=== PATIENT | male | born 1985 | race Caucasian/White ===

== ENCOUNTER 2017-01-04 17:23 | Emergency (ER) | payer MEDICAID ==
[2017-01-04 17:29] VITALS: RESP 16
[2017-01-04] MEDS ORDERED: HYDROCOD/APAP 5/325 PREPACK#6 BTL TAKEHOME ONE (18:41)
[2017-01-04] MEDS ORDERED: SULFAMET/TMP DS PREPACK#2 BTL TAKEHOME ONE (18:41)
--- NOTE | 2017-01-04 18:42 | EDPHY ---
H & P Time Seen by Provider: 01/04/17 17:38 HPI/ROS: CHIEF COMPLAINT: Abscess on my back HISTORY OF PRESENT ILLNESS: 31-year-old male has been seen in the emergency department previously for significant lower back abscess, possible pilonidal cyst abscess, presents with similar complaints. Patient describes difficulty with sitting and a painful lump just to the left of midline at the bottom of his spine. No fevers or chills. Small amount of spontaneous drainage per the patient's history. No numbness or tingling in the legs, no weakness, no urinary incontinence. No nausea, vomiting, or diarrhea. REVIEW OF SYSTEMS: Aside from elements discussed in the HPI, a comprehensive 10-point review of systems was reviewed and is negative. PAST MEDICAL HISTORY: Prior history of abscess, possible pilonidal cyst, the lower back SOCIAL HISTORY: History of homelessness. GENERAL APPEARANCE: Alert, conversant, no acute distress. Pleasant, complaining of pain he tries to sit or lay on his back. FOCUSED EXAM OF lower back: There is a small area of tenderness and fullness, 2 cm x 1 cm, at the very top of that gluteal cleft, just slightly to the left. Small draining wound is present. Some fluctuant. Tender. No erythema noted. Neurovascular exam: Distal neurovascularly intact. Normal motor and strength in lower extremities. Smoking Status: Current every day smoker Constitutional: Initial Vital Signs Temperature (C) 36.7 C 01/04/17 17:27 Heart Rate 84 01/04/17 17:27 Respiratory Rate 16 01/04/17 17:27 Blood Pressure 106/58 L 01/04/17 17:27 O2 Sat (%) 96 01/04/17 17:27 O2 Delivery Mode Room Air Allergies/Adverse Reactions: penicillin G Allergy (Verified 11/07/16 14:43) Home Medications: Medication Instructions Recorded Sulfamethox/Tmp 800/160 mg 1 tab PO BID #14 tab 11/07/16 [Bactrim Ds] Cephalexin [Keflex] 500 mg PO QID 10 Days 11/09/16 Sulfamethox/Tmp 800/160 mg 1 tab PO BID@1000,2200 10 Days 11/09/16 [Bactrim Ds] Sulfamethox/Tmp 800/160 mg 1 tab PO BID #14 tab 01/04/17 [Bactrim Ds] MDM/Departure - MDM Procedures: Procedure: Abscess drainage. The patient's abscess was located on the lower back, just at the top of the gluteal cleft, just to left of midline. I obtained verbal consent from the patient to drain the abscess who was informed about the possibility of bleeding and pain. The abscess was incised with a scalpel and a minimal amount of purulent drainage was expressed. Initial incision was made distal to a draining sinus and did not reveal any purulence. This area was sutured with 2 simple interrupted sutures. Incision was then extended from the draining site cephalad, with only a minimal amount of purulence expressed. The patient tolerated the procedure well. The procedure was performed by myself. Medications Given: Discontinued Medications Acetaminophen/Hydrocodone Bitart ([place] 5/325mg Prepack#6) 1 btl TAKEHOME EDNOW ONE Stop: 01/04/17 18:42 Last Admin: 01/04/17 19:12 Dose: 1 btl Trimethoprim/Sulfamethoxazole (Bactrim Ds Prepack#2) 1 btl TAKEHOME EDNOW ONE Stop: 01/04/17 18:42 Last Admin: 01/04/17 19:22 Dose: 1 btl ED Course/Re-evaluation: 31-year-old male presenting with a 2nd episode of a small abscess at the lower back. This may represent a pilonidal cyst, however, it is just slightly to the left of midline. Initial incision over the center of the fullness did not reveal any purulence. This incision was closed. Draining sinus was opened slightly a small amount of purulence was expressed. Patient was placed on Bactrim and given [place] for pain control. He will return in 7-10 days for removal of the sutures. He was referred to Dr. Eng for further evaluation of this recurrent draining area. Differential Diagnosis: Differential diagnoses for the patient's symptom complex was considered including but not limited to infected pilonidal cyst, draining sinus, simple skin abscess, MRSA. - Depart Disposition: Home, Routine, Self-Care Clinical Impression: Abscess Condition: Good Instructions: Pilonidal Cyst (ED), Abscess (ED) Additional Instructions: Please take the antibiotics as directed. Bactrim DS 1 tablet by mouth 2 times a day for 5 days. Okay to take pain medications as needed. Please follow up with Dr. Eng for re-examination further treatment to prevent recurrent abscess. Return to the emergency department in 7-10 days to have sutures removed. Prescriptions: Sulfamethox/Tmp 800/160 mg [Bactrim Ds] 1 tab PO BID #14 tab Referrals: Jesus Eng MD [Medical Doctor] - As per Instructions
[2017-01-04 19:25] VITALS: BP 111/65; PULSE 88; TEMP 98.6; O2SAT 99
== END 2017-01-04 19:25 | disposition home or self-care (01) ==
PROC: 0J970ZZ Drainage of Back Subcutaneous Tissue and Fascia, Open Approach (ICD-10-PCS; principal; 2017-01-04)
DX: L02.212 Cutaneous abscess of back [any part, except buttock and flank] (principal); F17.200 Nicotine dependence, unspecified, uncomplicated

== ENCOUNTER 2017-01-08 12:00 | Emergency (ER) | payer MEDICAID ==
[2017-01-08 12:04] VITALS: BP 135/81; PULSE 82; RESP 16; TEMP 98.1; O2SAT 98
[2017-01-08] MEDS ORDERED: OXYCODONE/APAP 5/325 TAB PO ONE (12:11)
--- NOTE | 2017-01-08 12:16 | EDPHY ---
H & P Time Seen by Provider: 01/08/17 12:05 HPI/ROS: CHIEF COMPLAINT: Continued pain cleft of the buttock HISTORY OF PRESENT ILLNESS: 31-year-old homeless male, immunocompetent, history of recurrent pilonidal cyst, seen the ER 4 days ago with incision and drainage by ER physician at that time. He is currently homeless. He has been walking extensively in doing construction work and notes that he has continued pain. He was given 5 opiate tablets at that time which he has consumed has continued pain. Denies new symptoms. Denies trauma. Denies radiculopathy. Denies fever chills. Denies flu-like symptoms. PHYSICAL EXAM (Prior to examination, patient consented to physical exam, hands were washed and my usual and customary physical exam procedures followed) 1) GENERAL: Well-developed, well-nourished, alert and oriented. Appears to be in no acute distress. 2) HEAD: Normocephalic 3) HEENT: sclera anicteric 4) LUNGS: Breathing comfortably. 5) SKIN: cleft of the buttock incision is noted which continues to drain. There is localized tenderness with no visible erythema or violaceous discoloration. There is no crepitus. The proximal and distal spine is nontender. Smoking Status: Current every day smoker Constitutional: Initial Vital Signs Temperature (C) 36.7 C 01/08/17 12:02 Heart Rate 82 01/08/17 12:02 Respiratory Rate 16 01/08/17 12:02 Blood Pressure 135/81 H 01/08/17 12:02 O2 Sat (%) 98 01/08/17 12:02 O2 Delivery Mode Room Air Allergies/Adverse Reactions: penicillin G Allergy (Verified 11/07/16 14:43) Home Medications: Medication Instructions Recorded Sulfamethox/Tmp 800/160 mg 1 tab PO BID #14 tab 11/07/16 [Bactrim Ds] Cephalexin [Keflex] 500 mg PO QID 10 Days 11/09/16 Sulfamethox/Tmp 800/160 mg 1 tab PO BID@1000,2200 10 Days 11/09/16 [Bactrim Ds] Sulfamethox/Tmp 800/160 mg 1 tab PO BID #14 tab 01/04/17 [Bactrim Ds] MDM/Departure - MDM ED Course/Re-evaluation: Old medical records reviewed. He has focal tenderness over his pilonidal cleft region. There are no new areas of fluctuance. The area continues to drain. I do not think that further incision and drainage indicated at this time. I do not think that imaging studies are currently indicated at this time. Due to his current lack of housing in because he is walking extensively, he has not been able to rest or apply warm compresses to the area regularly. Recommend continue antibiotics until finished. Given analgesia. Recommend 24-48 [facility] - Depart Disposition: Home, Routine, Self-Care Clinical Impression: Pilonidal cyst with abscess Condition: Good Instructions: Pilonidal Cyst (ED) Referrals: [facility] [Outside] - 1-2 days without fail
[2017-01-08] MEDS ORDERED: HYDROCOD/APAP 5/325 PREPACK#6 BTL TAKEHOME ONE (12:17)
== END 2017-01-08 12:34 | disposition home or self-care (01) ==
DX: L05.01 Pilonidal cyst with abscess (principal); F17.200 Nicotine dependence, unspecified, uncomplicated